=== PATIENT | male | born 1960 | race Caucasian/White ===

== ENCOUNTER → 2017-11-29 08:39 | Outpatient (CLI) | payer MEDICAID, SELFPAY ==
[2017-11-29 09:58] LABS: Microalbumin,Random Urine 8.7 mg/L (NO RANGE EST.); Microalbumin:Creatinine Ratio 5.7 mg/g CRE (<30 mg/g CRE)
[2017-11-29 10:06] LABS: ALB/GLOB Ratio 0.9 RATIO (0.9-2.4); AST(SGOT) 15 U/L (15-37); Alanine Aminotransfer ALT/SGPT 35 U/L (16-61); Albumin, Serum 3.6 g/dL (3.2-5.0); Alkaline Phosphatase 97 U/L (45-117); Anion Gap 7 (5-15); BUN 23 mg/dL (7-18); BUN/Creat Ratio 22.3 RATIO (10-20); Calcium,Total 8.9 mg/dL (8.5-10.1); Chloride 102 mmol/L (98-107); Cholesterol 146 mg/dL (200); Creatinine, Serum 1.03 mg/dL (0.70-1.30); EST Glomerular Filtration Rate 79 mL/min (>60); Est Glom Filt Rate - Afr Amer 96 mL/min (>60); Globulin 3.8 g/dL (2.2-4.2); Glucose 167 mg/dL (74-106); High Density Lipoprotein 32 mg/dL; Potassium 4.3 mmol/L (3.5-5.1); Protein, Total 7.4 g/dL (6.4-8.2); Sodium Level 138 mmol/L (136-145); Triglycerides 204 mg/dL; Very Low Density Lipoprotein 41 mg/dL (5-40)
[2017-11-29 10:07] LABS: Hemoglobin A1c 7.8 % (4.2-6.3)
== END ==
PROVIDERS: Family Provider Family Medicine; PCP Family Medicine; Visit Provider Nurse Practitioner
DX: E11.9 Type 2 diabetes mellitus without complications (principal)
CPT/HCPCS: 36415; 80053; 80061; 82043; 82570; 83036

== ENCOUNTER → 2018-06-11 06:14 | Outpatient (CLI) | payer OTHER, SELFPAY ==
[2018-06-10 12:49] VITALS: BMI 32.2
[2018-06-11 07:39] LABS: AST(SGOT) 14 U/L (15-37); Alanine Aminotransfer ALT/SGPT 37 U/L (16-61); Albumin, Serum 3.7 g/dL (3.2-5.0); Alkaline Phosphatase 89 U/L (45-117); Anion Gap 9 (5-15); BUN 15 mg/dL (7-18); BUN/Creat Ratio 14.6 RATIO (10-20); Calcium,Total 8.6 mg/dL (8.5-10.1); Chloride 106 mmol/L (98-107); Cholesterol 162 mg/dL (200); Creatinine, Serum 1.03 mg/dL (0.70-1.30); EST Glomerular Filtration Rate 79 mL/min (>60); Est Glom Filt Rate - Afr Amer 95 mL/min (>60); Globulin 3.6 g/dL (2.2-4.2); Glucose 161 mg/dL (74-106); High Density Lipoprotein 39 mg/dL; Potassium 3.7 mmol/L (3.5-5.1); Protein, Total 7.3 g/dL (6.4-8.2); Sodium Level 144 mmol/L (136-145); Triglycerides 139 mg/dL; Very Low Density Lipoprotein 28 mg/dL (5-40)
[2018-06-11 08:06] LABS: Hemoglobin A1c 7.3 % (4.2-6.3)
== END ==
PROVIDERS: Family Provider Family Medicine; PCP Family Medicine; Referring Provider Nurse Practitioner; Visit Provider Nurse Practitioner
DX: E11.9 Type 2 diabetes mellitus without complications (principal)
CPT/HCPCS: 36415; 80053; 80061; 82043; 82570; 83036

== ENCOUNTER → 2018-06-12 10:10 | Outpatient (CLI) | payer OTHER, SELFPAY ==
[2018-06-10 12:49] VITALS: BMI 32.2
[2018-06-12 10:55] LABS: Microalbumin,Random Urine 9.6 mg/L (NO RANGE EST.)
== END ==
PROVIDERS: Family Provider Family Medicine; PCP Family Medicine; Referring Provider Nurse Practitioner; Visit Provider Nurse Practitioner
DX: E11.9 Type 2 diabetes mellitus without complications (principal)
CPT/HCPCS: 82043; 82570

== ENCOUNTER → 2019-07-09 13:30 | Outpatient (CLI) | payer OTHER, SELFPAY ==
[2018-06-10 12:49] VITALS: BMI 32.2
[2019-07-09 15:54] LABS: Absolute Lymphocyte Count 2.51 X10^3/uL (0.83-4.51); Absolute Neutrophil Count 4.7 X10^3/uL (2.0-7.7); Basophil# 0.05 X10^3/uL; Basophil% 0.6 % (0-1); Eosinophil# 0.13 X10^3/uL; Eosinophils% 1.6 % (0-5); Hematocrit 49.6 % (40-54); Hemoglobin 15.5 g/dL (13.0-16.5); Lymphocyte # 2.51 X10^3/ul (4.0); Lymphocyte % 30.7 % (19-41); Mean Corp Hgb Conc 31.3 g/dL (32-36); Mean Corpuscular Hgb 27.3 pg (27.0-32.0); Mean Corpuscular Volume 87.3 fL (80-94); Mean Platelet Vol. 12.3 fl (6.2-12.0); Monocyte# 0.76 X10^3/uL; Monocyte% 9.3 % (0-10); NRBC Flagged by Analyzer 0 % (0-5); Neutrophil # 4.71 X10^3/uL (2.7-7.7); Neutrophil % 57.6 % (47-70); Platelet Count 263 K/mm3 (150-450); RBC Distribution Width CV 12.1 % (11.6-14.6); RBC Distribution Width SD 38.7 fl (35.1-43.9); Red Blood Count 5.68 M/mm3 (4.6-6.2); White Blood Count 8.2 K/mm3 (4.4-11.0)
[2019-07-09 16:53] LABS: AST(SGOT) 19 U/L (15-37); Alanine Aminotransfer ALT/SGPT 37 U/L (16-61); Albumin, Serum 3.9 g/dL (3.2-5.0); Alkaline Phosphatase 88 U/L (45-117); Anion Gap 4 (5-15); BUN 17 mg/dL (7-18); BUN/Creat Ratio 16.7 RATIO (10-20); Calcium,Total 8.7 mg/dL (8.5-10.1); Chloride 105 mmol/L (98-107); Cholesterol 166 mg/dL (200); Creatinine, Serum 1.02 mg/dL (0.70-1.30); EST Glomerular Filtration Rate 79 mL/min (>60); Est Glom Filt Rate - Afr Amer 96 mL/min (>60); Globulin 3.8 g/dL (2.2-4.2); Glucose 124 mg/dL (74-106); High Density Lipoprotein 36 mg/dL; Microalbumin,Random Urine 15.5 mg/L (NO RANGE EST.); Microalbumin:Creatinine Ratio 10.8 mg/g CRE (<30 mg/g CRE); Potassium 4.1 mmol/L (3.5-5.1); Protein, Total 7.7 g/dL (6.4-8.2); Sodium Level 139 mmol/L (136-145); Thyroid Stim Hormone (TSH) 0.53 uIU/mL (0.358-3.74); Triglycerides 137 mg/dL; Very Low Density Lipoprotein 27 mg/dL (5-40)
== END ==
PROVIDERS: PCP Family Medicine; Visit Provider Family Medicine
DX: E11.65 Type 2 diabetes mellitus with hyperglycemia (principal); I10 Essential (primary) hypertension; E78.5 Hyperlipidemia, unspecified
CPT/HCPCS: 36415; 80053; 80061; 82043; 82570; 84443; 85025

== ENCOUNTER 2021-05-18 12:13 | Emergency (ER) | payer MEDICAID, SELFPAY ==
[2021-05-18 12:13] VITALS: BP 124/73; PULSE 82; RESP 22; TEMP 37.4; O2SAT 96; BMI 32.7
[2021-05-18 12:16] VITALS: BP 125/70; PULSE 81; RESP 17; TEMP 37.4; O2SAT 95
--- NOTE | 2021-05-18 12:20 | EKG12_ITS ---
Test Reason : SYNCOPE Blood Pressure : / mmHG Vent. Rate : 083 BPM Atrial Rate : 083 BPM P-R Int : 186 ms QRS Dur : 082 ms QT Int : 358 ms P-R-T Axes : 050 025 055 degrees QTc Int : 420 ms Normal sinus rhythm Normal ECG Confirmed by JARED JESUS, MILLER ([id number]), web editor BEHZAD WILLSON ([id number]) on 05/19/2021 1:43:01 PM Referred By: ROYAL Confirmed By:BONY COLEMAN MD
--- NOTE | 2021-05-18 12:20 | RAD_ITS ---
STUDY: X-RAY CHEST REASON FOR EXAM: Male, 61 years old. Cough TECHNIQUE: Single AP portable view of the chest. COMPARISON: None. FINDINGS: EKG electrodes are seen. The lungs are clear and expanded. There is no demonstrated pleural abnormality. Normal size heart. Normal mediastinum and nikos. Normal visualized pulmonary arteries. Normal visualized aortic arch and descending thoracic aorta. Normal visualized thoracic spine. Normal visualized ribs, clavicles, and shoulders. There is no demonstrated abnormality of the visualized soft tissue structures of the upper abdomen. RAD/Chest 1 View (Portable) IMPRESSION: Normal x-ray examination of the chest. Electronically Signed: Tank Muñoz MD at 12:54 EST , Service support ,
[2021-05-18 12:38] LABS: Absolute Lymphocyte Count 1.73 X10^3/uL (0.83-4.51); Basophil# 0.04 X10^3/uL; Basophil% 0.3 % (0-1); Eosinophil# 0.02 X10^3/uL; Eosinophils% 0.1 % (0-5); Hematocrit 48.4 % (40-54); Hemoglobin 15.7 g/dL (13.0-16.5); Lymphocyte # 1.73 X10^3/ul (0.83-4.51); Lymphocyte % 11.3 % (19-41); Mean Corp Hgb Conc 32.4 g/dL (32-36); Mean Corpuscular Volume 86.4 fL (80-94); Mean Platelet Vol. 11.9 fl (6.2-12.0); Monocyte% 9.8 % (0-10); NRBC Flagged by Analyzer 0 % (0-5); Neutrophil # 11.99 X10^3/uL (2.7-7.7); Neutrophil % 78.1 % (47-70); Platelet Count 237 K/mm3 (150-450); RBC Distribution Width CV 12.8 % (11.6-14.6); White Blood Count 15.3 K/mm3 (4.4-11.0)
[2021-05-18 12:55] LABS: ALB/GLOB Ratio 0.9 RATIO (0.9-2.4); AST(SGOT) 16 U/L (15-37); Alanine Aminotransfer ALT/SGPT 33 U/L (16-61); Albumin, Serum 3.7 g/dL (3.2-5.0); Alkaline Phosphatase 100 U/L (45-117); Anion Gap 9 (5-15); BUN 15 mg/dL (7-18); BUN/Creat Ratio 13.6 RATIO (10-20); Calcium,Total 8.4 mg/dL (8.5-10.1); Chloride 99 mmol/L (98-107); EST Glomerular Filtration Rate 72 mL/min (>60); Est Glom Filt Rate - Afr Amer 88 mL/min (>60); Estimated Creatinine Clearance 70.52 ml/min; Glucose 160 mg/dL (74-106); Protein, Total 7.7 g/dL (6.4-8.2); Sodium Level 137 mmol/L (136-145); Troponin-I HS 6 pg/mL (3.0-78.0)
[2021-05-18 13:13] VITALS: BP 133/79; PULSE 90; RESP 18; TEMP 37.1; O2SAT 94
--- NOTE | 2021-05-18 13:23 | EDS_ITS ---
HPI History of Present Illness Chief Complaint: Syncope Narrative Narrative: 61-year-old male presenting with fatigue, cough, body aches for the last couple of days. He thought that he had a cold. Patient states today that he felt nauseous and stood up to go to the bathroom and had an episode of syncope. This is witnessed by the . He did fall to the ground and was unconscious about 10 seconds. Patient was immediately arousable upon awakening. He was alert. Apparently when EMS came to get him off the floor he had an episode of near syncope after they stood him up. Patient denies any chest pain or shortness of breath. He has not had a fever. He states he was vaccinated for COVID-19 with the Room vaccine x2. He states that if he was positive for COVID he would want to monoclonal antibodies. He states that he is diabetic and his blood sugars have been running in the 115 range. No history of syncope. No history of sudden cardiac in the family. [facility] Medical History Back problem Diabetes type 2, controlled HTN (hypertension) Pneumonia Vision problems Home Medications lisinopril-hydrochlorothiazide 1 tab PO DAILY 06/25/15 [History Last Taken Unknown] glimepiride 4 mg tablet 4 mg PO QAM 06/11/17 [History Last Taken Unknown] metformin 500 mg tablet 500 mg PO .4 x qd tab 06/11/17 [History Last Taken Unknown] pravastatin 20 mg tablet 20 mg PO QHS 06/11/17 [History Last Taken Unknown] exenatide 5 mcg SC QDAY ml 09/13/17 [History Last Taken Unknown] metformin 1,000 mg tablet,extended release 24hr 1,000 mg PO BID #180 tab 09/13/17 [Rx Last Taken Unknown] insulin glargine 100 unit/mL (3 mL) subcutaneous pen 20 unit SC QDAY #15 ml 01/08/18 [Rx Last Taken Unknown] dulaglutide 0.75 mg/0.5 mL subcutaneous pen injector 0.75 mg SC QWEEK #2 ml 03/13/18 [Rx Last Taken Unknown] ondansetron 4 mg PO Q8H PRN PRN #14 tab 05/18/21 [Rx Last Taken Unknown] Allergy/AdvReac Type Severity Reaction Status Date / Time No Known Allergies Allergy Verified 05/18/21 12:19 Family History Unknown Diabetes Heart disease Hypertension Social History Smoking Status: Never smoker second hand exposure: No alcohol intake: never substance use type: does not use ROS ROS ED ROS Narrative Syncopal episode Constitutional Constitutional ED: Reports chills; Denies fever(s) Eyes Eyes: Denies blurry vision or diplopia ENT ENT ED: Reports rhinorrhea; Denies sore throat Cardiovascular Cardiovascular: Denies chest pain or palpitations Respiratory/Chest Respiratory/Chest: Reports cough; Denies dyspnea or sputum Gastrointestinal Gastrointestinal: Denies abdominal pain, nausea or vomiting Genitourinary Genitourinary ED: Denies dysuria or hematuria Musculoskeletal Musculoskeletal: Reports myalgias Integumentary Denies Abrasions or rash Neurologic Neurologic: Reports headache(s); Denies paresthesias or weakness EXAM Physical Exam Const Vital Signs: 05/18/21 12:13 05/18/21 12:16 05/18/21 12:25 Temperature 99.4 F H 99.4 F H Temperature Source Oral Oral Pulse Rate 82 81 Respiratory Rate 22 H 17 Respiratory Effort Normal Respiratory Pattern Normal Blood Pressure 124/73 H 125/70 H Blood Pressure Mean 90 88 Pulse Ox 96 95 Oxygen Delivery Method Room Air Room Air 05/18/21 13:13 05/18/21 14:03 Temperature 98.7 F 99.4 F H Temperature Source Temporal Temporal Pulse Rate 90 85 Respiratory Rate 18 16 Respiratory Effort Respiratory Pattern Blood Pressure 133/79 H 153/87 H Blood Pressure Mean 97 109 Pulse Ox 94 95 Oxygen Delivery Method Room Air Room Air Positive well nourished and obese General Appearance ED: NAD; Negative for pallor Nutritional Appearance: obese HEENT Reports TM's clear and moist mucous membranes Negative for trauma Tympanic Membrane ED: Yes TM's clear Eyes EOMs intact bilaterally General Eye ED: Negative for pale conjunctiva or scleral icterus Neck no lymphadenopathy and supple Resp normal respiratory effort and clear to auscultation bilaterally Cardio regular rate and regular rhythm GI normal to inspection, nondistended, normoactive bowel sounds Extremity Negative for normal to inspection General Extremety ED: Negative for edema or tenderness General Extremity: Negative for edema Neuro oriented x3 and CN's II-XII intact bilaterally Sensorium / Orientation: alert Psych mental status grossly normal Skin General Skin Exam: Negative for jaundice or pallor MDM MDM MDM Narrative Medical decision making narrative: Patient presenting with episode of syncope at home. He feels he has been sick for couple of days with something he believes was a cold. Since he had an episode of syncope I obtained an EKG which on my interpretation shows sinus rhythm with a ventricular of 83 bpm without sign of ischemic change or dysrhythmia. Chest x-ray on my interpretation shows no acute cardiopulmonary process the radiologist does agree. CBC shows slight l eukocytosis of 15.3 without a known source. This could be demargination from his syncopal episode. Hemoglobin hematocrit are stable. Renal function electrolytes are normal. Glucose is 160. LFTs are normal. Patient given a liter of IV fluids. He does not have any focal neurologic deficits on examination, and although he hit his head he is not having any red flag signs or symptoms and I do not believe he needs a head CT. Patient did test positive for COVID-19 today. He does request to have a referral for monoclonal antibodies. This is performed. Patient does state that he was sitting for a couple of hours when he felt nauseous and stood up abruptly prior to having a syncopal episode. He currently feels improved. His syncope is likely a combination of getting up too quickly and vasovagal response. Patient is receiving IV fluids and when these are done he will be able to be discharged home. Impression: 1. COVID-19 2. Syncope 3. Nausea 4. Leukocytosis Lab Data Attestation: I reviewed the patient's lab results. Labs: Laboratory Results - last 24 hr 05/18/21 05/18/21 12:20 12:20 WBC 15.3 H RBC 5.60 Hgb 15.7 Hct 48.4 MCV 86.4 MCH 28.0 MCHC 32.4 RDW Std Deviation 40.0 RDW Coeff of Marisol 12.8 Plt Count 237 MPV 11.9 Immature Gran % (Auto) 0.400 Neut % (Auto) 78.1 H Lymph % (Auto) 11.3 L [place] % (Auto) 9.8 Eos % (Auto) 0.1 Baso % (Auto) 0.3 Absolute Neuts (auto) 12.0 H Absolute Lymphs (auto) 1.73 Nucleated RBC % 0 Sodium 137 Potassium 4.0 Chloride 99 Carbon Dioxide 29.0 Anion Gap 9 BUN 15 Creatinine 1.10 Estim Creat Clear Calc 70.52 Est GFR (MDRD) Af Amer 88 Est GFR (MDRD) Non-Af 72 BUN/Creatinine Ratio 13.6 Glucose 160 H Calcium 8.4 L Total Bilirubin 0.60 AST 16 ALT 33 Alkaline Phosphatase 100 Troponin I High Sens 6 Total Protein 7.7 Albumin 3.7 Globulin 4.0 Albumin/Globulin Ratio 0.9 Radiography Diagnostic Testing: Clinical Impression(s) from Imaging Studies Chest X-Ray 05/18/21 12:20 IMPRESSION: Normal x-ray examination of the chest. Electronically Signed: Tank Muñoz MD at 12:54 EST , Service support , Discharge Plan Triage Chief Complaint: Syncope ED Provider: Dieudonne Willson Dx/Rx/DC Orders Instructions: Coronavirus Disease 2019 (COVID-19): Caring for Yourself or Others, ED Fainting, Uncertain Cause, ED Vomiting (Adult) Prescriptions: New ondansetron 4 mg tablet,disintegrating 4 mg PO Q8H PRN PRN (Reason: Nausea) Qty: 14 RF: 0 No Action pravastatin 20 mg tablet 20 mg PO QHS RF: 0 glimepiride 4 mg tablet 4 mg PO QAM RF: 0 exenatide 5 mcg/dose (250 mcg/mL)1.2 mL subcutaneous pen injector 5 mcg/dose (250 mcg/mL) 1.2 mL pen injector 5 mcg SC QDAY RF: 0 metformin ER 1,000 mg tablet,extended release 24hr 1,000 mg tablet extended release 24hr 1,000 mg PO BID Qty: 180 RF: 3 Trulicity 0.75 mg/0.5 mL pen injector 0.75 mg SC QWEEK Qty: 2 RF: 11 lisinopril-hydrochlorothiazide 1 TABLET tablet 1 tab PO DAILY RF: 0 metformin 500 MG tablet 500 mg PO .4 x qd RF: 0 insulin glargine [Basaglar KwikPen U-100 Insulin] 100 unit/mL (3 mL) insulin pen 20 unit SC QDAY Qty: 15 RF: 11 Primary Care Provider: Lukas Boggs Referrals: Lukas Boggs MD [Primary Care Provider] - Disposition Disposition: Home, Self Care
[2021-05-18 14:03] VITALS: BP 153/87; PULSE 85; RESP 16; TEMP 37.4; O2SAT 95
[2021-05-18] MEDS: 0.9% Normal Saline 1,000 ML 999 ML IV (14:03)
[2021-05-18 14:29] VITALS: BP 150/88; PULSE 78; RESP 18; TEMP 36.9; O2SAT 96
== END 2021-05-18 14:30 | disposition home or self-care (01) ==
PROVIDERS: Emergency Provider Student in an Organized Health Care Education/Training Program; PCP Family Medicine; Visit Provider Student in an Organized Health Care Education/Training Program
DX: U07.1 COVID-19 (principal); E11.9 Type 2 diabetes mellitus without complications; Z79.4 Long term (current) use of insulin; R55 Syncope and collapse; I10 Essential (primary) hypertension; Z87.01 Personal history of pneumonia (recurrent); Z79.899 Other long term (current) drug therapy; E66.9 Obesity, unspecified; Z68.32 Body mass index [BMI] 32.0-32.9, adult
CPT/HCPCS: 71045; 80053; 84484; 85025; 87426; 93005; 99285; J7030; A4216

== ENCOUNTER → 2022-07-10 | Outpatient (CLI) | payer MEDICAID, SELFPAY ==
--- NOTE | 2022-07-10 08:35 | RAD_ITS ---
EXAM: XR LEFT SHOULDER COMPLETE, 2 OR MORE VIEWS CLINICAL INDICATION: chronic pain TECHNIQUE: Two or more views of the left shoulder. This report was created using [employer] report generation technology. COMPARISON: None. FINDINGS: BONES/JOINTS: Mild to moderate degenerative changes of the acromioclavicular joint. Type II acromion with curved undersurface. No sclerotic or destructive changes observed. No acute or healing fracture or malalignment. SOFT TISSUES: Soft tissues are normal. No soft tissue swelling or gas. No radiopaque foreign body. RAD/Shoulder min 2 Views IMPRESSION: No acute or healing fracture or malalignment. Electronically Signed: Robert Maher MD at 3:39 EST ,
[2022-07-10 08:52] LABS: Absolute Lymphocyte Count 2.58 X10^3/uL (0.83-4.51); Absolute Neutrophil Count 4.4 X10^3/uL (2.0-7.7); Basophil# 0.05 X10^3/uL; Basophil% 0.6 % (0-1); Eosinophil# 0.29 X10^3/uL; Eosinophils% 3.6 % (0-5); Hematocrit 46.6 % (40-54); Hemoglobin 14.6 g/dL (13.0-16.5); Lymphocyte # 2.58 X10^3/ul (0.83-4.51); Lymphocyte % 32.3 % (19-41); Mean Corp Hgb Conc 31.3 g/dL (32-36); Mean Corpuscular Hgb 27.4 pg (27.0-32.0); Mean Corpuscular Volume 87.6 fL (80-94); Mean Platelet Vol. 11.9 fl (6.2-12.0); Monocyte% 8.8 % (0-10); NRBC Flagged by Analyzer 0 % (0-5); Neutrophil # 4.36 X10^3/uL (2.7-7.7); Neutrophil % 54.4 % (47-70); Platelet Count 296 K/mm3 (150-450); RBC Distribution Width CV 12.5 % (11.6-14.6); RBC Distribution Width SD 39.7 fl (35.1-43.9); Red Blood Count 5.32 M/mm3 (4.6-6.2)
[2022-07-10 09:26] LABS: ALB/GLOB Ratio 0.9 RATIO (0.9-2.4); AST(SGOT) 11 U/L (15-37); Alanine Aminotransfer ALT/SGPT 26 U/L (16-61); Albumin, Serum 3.7 g/dL (3.2-5.0); Alkaline Phosphatase 105 U/L (45-117); Anion Gap 8 (5-15); BUN 22 mg/dL (7-18); BUN/Creat Ratio 19.8 RATIO (10-20); Calcium,Total 8.7 mg/dL (8.5-10.1); Chloride 104 mmol/L (98-107); Cholesterol 182 mg/dL (200); Creatinine, Serum 1.11 mg/dL (0.70-1.30); EST Glomerular Filtration Rate 71 mL/min (>60); Est Glom Filt Rate - Afr Amer 86 mL/min (>60); Globulin 3.9 g/dL (2.2-4.2); Glucose 158 mg/dL (74-106); High Density Lipoprotein 37 mg/dL; Protein, Total 7.6 g/dL (6.4-8.2); Sodium Level 139 mmol/L (136-145); Triglycerides 90 mg/dL; Very Low Density Lipoprotein 18 mg/dL (5-40)
[2022-07-10 09:30] LABS: Microalbumin,Random Urine 20.8 mg/L (NO RANGE EST.); Microalbumin:Creatinine Ratio 9.3 mg/g CRE (<30 mg/g CRE)
[2022-07-10 10:12] LABS: Hemoglobin A1c 7.4 % (3.8-5.6)
== END | disposition home or self-care (01) ==
PROVIDERS: PCP Internal Medicine; Referring Provider Internal Medicine; Visit Provider Internal Medicine
DX: M25.512 Pain in left shoulder (principal); E11.9 Type 2 diabetes mellitus without complications; G89.29 Other chronic pain; I10 Essential (primary) hypertension
CPT/HCPCS: 36415; 73030; 80053; 80061; 82043; 82570; 83036; 85025

== ENCOUNTER → 2023-11-07 | Outpatient (CLI) | payer OTHER, SELFPAY ==
[2023-11-07 10:22] LABS: Absolute Lymphocyte Count 2.21 X10^3/uL (0.83-4.51); Absolute Neutrophil Count 3.7 X10^3/uL (2.0-7.7); Basophil# 0.05 X10^3/uL; Basophil% 0.7 % (0-1); Eosinophil# 0.22 X10^3/uL; Eosinophils% 3.2 % (0-5); Hematocrit 46.7 % (40-54); Lymphocyte # 2.21 X10^3/ul (0.83-4.51); Lymphocyte % 32.1 % (19-41); Mean Corp Hgb Conc 32.1 g/dL (32-36); Mean Corpuscular Hgb 27.3 pg (27.0-32.0); Mean Corpuscular Volume 85.1 fL (80-94); Mean Platelet Vol. 12.2 fl (6.2-12.0); Monocyte# 0.68 X10^3/uL; Monocyte% 9.9 % (0-10); NRBC Flagged by Analyzer 0 % (0-5); Neutrophil # 3.71 X10^3/uL (2.7-7.7); Platelet Count 268 K/mm3 (150-450); RBC Distribution Width CV 12.4 % (11.6-14.6); RBC Distribution Width SD 38.5 fl (35.1-43.9); Red Blood Count 5.49 M/mm3 (4.6-6.2); White Blood Count 6.9 K/mm3 (4.4-11.0)
[2023-11-07 10:55] LABS: AST(SGOT) 17 U/L (15-37); Alanine Aminotransfer ALT/SGPT 32 U/L (16-61); Albumin, Serum 3.5 g/dL (3.2-5.0); Alkaline Phosphatase 84 U/L (45-117); Anion Gap 7 (5-15); BUN 16 mg/dL (7-18); BUN/Creat Ratio 14.5 RATIO (10-20); Calcium,Total 8.7 mg/dL (8.5-10.1); Chloride 105 mmol/L (98-107); Cholesterol 139 mg/dL (200); EST Glomerular Filtration Rate 72 mL/min (>60); Est Glom Filt Rate - Afr Amer 87 mL/min (>60); Globulin 3.6 g/dL (2.2-4.2); Glucose 86 mg/dL (74-106); High Density Lipoprotein 39 mg/dL; Potassium 3.6 mmol/L (3.5-5.1); Protein, Total 7.1 g/dL (6.4-8.2); Sodium Level 139 mmol/L (136-145); Thyroid Stim Hormone (TSH) 1.47 uIU/mL (0.358-3.74); Triglycerides 103 mg/dL; Very Low Density Lipoprotein 21 mg/dL (5-40)
[2023-11-07 10:58] LABS: Microalbumin,Random Urine 15.3 mg/L (NO RANGE EST.)
[2023-11-08 13:50] LABS: Vitamin D,25 Hydroxy 19.9 ng/mL
== END | disposition home or self-care (01) ==
LOC: LAB 09:30
PROVIDERS: PCP Internal Medicine; Referring Provider Nurse Practitioner Family; Visit Provider Nurse Practitioner Family
DX: E11.9 Type 2 diabetes mellitus without complications (principal); I10 Essential (primary) hypertension; E66.09 Other obesity due to excess calories; Z68.34 Body mass index [BMI] 34.0-34.9, adult
CPT/HCPCS: 36415; 80053; 80061; 82043; 82306; 82570; 84443; 85025

== ENCOUNTER → 2025-04-13 | Outpatient (CLI) | payer MEDICARE, SELFPAY ==
--- OUTSIDE RECORDS SUMMARY | 2025-04-13 08:51 | XMS RPT_ITS | CCD ---
Author Organization [facility] Care Team Providers Care Graduate Student Instructor Name Role Phone Dr. Lukas Boggs Primary Care Provider Dr. Lukas Boggs Referring Provider Dr. Flora Rubalcava Attending Provider Gini JESUS, Dr. Hines Primary Care Provider Dr. Flora Rubalcava MD Referring Provider Rodo [employer]ris Attending Provider Vulcan, Flora Primary Care Unavailable Iris Koehler Attending Unavailable Gini, Flora Referring Unavailable Kassidy Aviles Attending Unavailable Vulcan, Flora Primary Care Unavailable Vulcan, Flora Referring Unavailable Gini, Flora Primary Care Unavailable Iris Koehler Attending Unavailable Vulcan, Flora Referring Unavailable Iris Koehler Attending Unavailable Vulcan, Flora Referring Unavailable Vulcan, Flora Primary Care Unavailable Gini, Flora Attending Unavailable Vulcan, Flora Referring Unavailable Gini, Flora Primary Care Unavailable Iris Koehler Attending Unavailable Vulcan, Flora Primary Care Unavailable Vulcan, Flora Referring Unavailable Vulcan, Flora Primary Care Unavailable Iris Koehler Attending Unavailable Iris Koehler Referring Unavailable Medications Current Medications Medication Drug Class(es) Dates Sig (Normalized) Sig (Original) Blood-Glucose Sensor (Dexcom G6 Sensor) device (8 sources) Start: 07-30-2024 Blood-Glucose Sensor (Dexcom G6 Sensor) device Active 0 .Route 3 July 30, 2024 8:18am As directed Start: 03-31-2024 End: 07-30-2024 Blood-Glucose Sensor (Dexcom G6 Sensor) device Discontinued 0 .Route 3 March 31, 2024 1:44pm July 30, 2024 8:18am As directed Start: 11-01-2023 End: 03-31-2024 Blood-Glucose Sensor (Dexcom G6 Sensor) device Discontinued 0 .Route 3 November 01, 2023 9:14am March 31, 2024 1:44pm As directed Start: 09-03-2023 End: 11-01-2023 Blood-Glucose Sensor (Dexcom G6 Sensor) device Discontinued 0 .Route 3 September 03, 2023 8:10am November 01, 2023 9:15am As directed Start: 04-20-2023 End: 09-03-2023 Blood-Glucose Sensor (Dexcom G6 Sensor) device Discontinued 0 .Route 3 April 20, 2023 11:59am September 03, 2023 8:10am As directed Start: 08-08-2022 End: 04-20-2023 Blood-Glucose Sensor (Dexcom G6 Sensor) device Discontinued 0 .Route 3 August 08, 2022 9:03am April 20, 2023 12:00pm As directed Start: 06-22-2022 End: 08-08-2022 Blood-Glucose Sensor (Dexcom G6 Sensor) device Discontinued 0 .Route June 22, 2022 1:00am August 08, 2022 9:04am As directed Start: 06-22-2022 Blood-Glucose Sensor (Dexcom G6 Sensor) device Active 0 .ROUTE June 22, 2022 1:00am As directed Blood-Glucose Transmitter (Dexcom G6 Transmitter) device (6 sources) Start: 03-31-2024 Blood-Glucose Transmitter (Dexcom G6 Transmitter) device Active 0 .Route 1 March 31, 2024 1:44pm As directed Start: 11-01-2023 End: 03-31-2024 Blood-Glucose Transmitter (D excom G6 Transmitter) device Discontinued 0 .Route 1 November 01, 2023 9:14am March 31, 2024 1:44pm As directed Start: 04-20-2023 End: 11-01-2023 Blood-Glucose Transmitter (D excom G6 Transmitter) device Discontinued 0 .Route 1 April 20, 2023 11:59am November 01, 2023 9:15am As directed Start: 11-14-2022 End: 04-20-2023 Blood-Glucose Transmitter (D excom G6 Transmitter) device Discontinued 0 .Route 1 November 14, 2022 10:49am April 20, 2023 12:00pm As directed Start: 08-08-2022 End: 11-14-2022 Blood-Glucose Transmitter (D excom G6 Transmitter) device Discontinued 0 .Route 1 August 08, 2022 9:04am November 14, 2022 10:50am As directed Start: 08-07-2022 End: 08-08-2022 Blood-Glucose Transmitter (D excom G6 Transmitter) device Discontinued 0 .Route August 07, 2022 12:00am August 08, 2022 9:04am As directed cholecalciferol 0.05 mg oral capsule (1 source) Vitamin D Start: 05-08-2024 take 1 capsule by mouth once daily Cholecalciferol (Vitamin D3) 50 mcg (2,000 unit) capsule Active 50 ug PO daily May 08, 2024 1:00am hydroCHLOROthiazide 12.5 mg / lisinopril 10 mg oral tablet (7 sources) Thiazide Diuretic, Angiotensin Converting Enzyme Inhibitor Start: 06-25-2015 End: 04-11-2024 Lisinopril-Hydrochl orothiazide 10-12.5 mg tablet Active 1 {tbl} PO DAILY April 11, 2024 3:20pm Start: 06-25-2015 take 1 tablet by rock once daily Lisinopril-Hydrochlorothiazide Active 1 TABLET PO DAILY June 25, 2015 1:00am insulin lispro 100 unt/ml injectable solution (5 sources) Insulin Analog Start: 04-25-2023 End: 09-22-2024 Insulin Lispro (Humalog U-100 Insulin) 100 unit/mL solution Active 100 U continuous subcutaneous infusion .continuous September 22, 2024 3:57pm to be used via insulin pump Insulin Pump Cart,Auto,Bt-Cntr (Omnipod 5 G6 Intro Kit (Gen 5)) cartridge (2 sources) Start: 03-08-2023 Insulin Pump Cart,Auto,Bt-Cntr (Omnipod 5 G6 Intro Kit (Gen 5)) cartridge Active 0 .Route March 08, 2023 4:22pm As directed Start: 02-15-2023 End: 03-08-2023 Insulin Pump Cart,Auto,Bt-Cn tr (Omnipod 5 G6 Intro Kit (Gen 5)) cartridge Discontinued 0 .Route 1 February 15, 2023 12:00am March 08, 2023 4:23pm As directed Insulin Pump Cart,Automated,Bt cartridge (1 source) Start: 10-02-2024 Insulin Pump Cart,Automated,Bt cartridge Active 0 .Route 45 October 02, 2024 11:15am 1 pod q 72 hrs metFORMIN hydrochloride 1000 mg oral tablet (11 sources) Biguanide Start: 04-17-2023 End: 04-11-2024 take 1 tablet by mouth twice daily Metformin 1,000 mg tablet Active 1000 mg PO TWICE A DAY 180 April 11, 2024 10:23am Start: 09-13-2017 End: 04-17-2023 take 1 tablet by mouth twice daily at dinner Metformin 1,000 mg tablet extended release 24 hr Discontinued 1000 mg PO TWICE A DAY 180 April 11, 2023 3:00pm April 17, 2023 3:52pm administer with evening meal Start: 06-11-2017 End: 06-22-2022 take 0.4 tablet by mouth once daily Metformin 500 MG tablet Discontinued 500 mg PO .4 x qd June 11, 2017 10:04am June 22, 2022 3:57pm Start: 06-25-2015 End: 06-11-2017 take 1 tablet by mouth three times daily at mealtime Metformin 500 MG tablet Discontinued 500 mg PO 3 TIMES DAILY WITH MEALS June 25, 2015 1:00am June 11, 2017 10:05am pravastatin sodium 20 mg oral tablet (6 sources) HMG-CoA Reductase Inhibitor Start: 06-11-2017 End: 06-30-2024 take 1 tablet by mouth at bedtime Pravastatin 20 mg tablet Active 20 mg PO AT BEDTIME 90 June 30, 2024 2:00pm zolpidem tartrate 10 mg oral tablet (3 sources) gamma-Aminobutyri c Acid-ergic Agonist Start: 12-20-2022 End: 12-25-2023 take 1 tablet by mouth at bedtime as needed Zolpidem 10 mg tablet Active 10 mg PO AT BEDTIME as needed for insomnia December 25, 2023 9:08am Completed/Discontinued Medications Medication Drug Class(es) Dates Sig (Normalized) Sig (Original) aspirin 81 mg delayed release oral tablet (2 sources) Platelet Aggregation Inhibitor, Nonsteroidal Anti-inflammatory Drug Start: 06-22-2022 End: 11-01-2023 Aspirin (Adult Low Dose Aspirin) 81 mg tablet,delayed release (DR/EC) Discontinued 81 mg PO DAILY June 22, 2022 1:00am November 01, 2023 8:46am atorvastatin 10 mg oral tablet (2 sources) HMG-CoA Reductase Inhibitor Start: 06-25-2015 End: 06-11-2017 take 1 tablet by mouth once daily Atorvastatin 10 MG tablet Discontinued 10 mg PO DAILY June 25, 2015 1:00am June 11, 2017 10:04am 0.5 ml dulaglutide 1.5 mg/ml auto-injector (2 sources) GLP-1 Receptor Agonist Start: 03-13-2018 End: 06-22-2022 Dulaglutide (Trulicity) 0.75 mg/0.5 mL pen injector Discontinued 0.75 mg SC EVERY WEEK 2 March 13, 2018 1:00am June 22, 2022 3:59pm 60 actuat exenatide 0.005 mg/actuat pen injector (4 sources) GLP-1 Receptor Agonist Start: 09-13-2017 End: 06-22-2022 Exenatide (Byetta) 5 mcg/dose (250 mcg/mL) 1.2 mL pen injector Discontinued 5 ug SC daily September 13, 2017 12:00am June 22, 2022 3:59pm Start: 09-13-2017 End: 06-22-2022 inject 5 ug by subcutaneous injection once daily exenatide 5 mcg/dose (250 mcg/mL)1.2 mL subcutaneous pen injector Discontinued 5 MCG SC daily September 13, 2017 12:00am June 22, 2022 3:59pm Start: 06-25-2015 End: 06-11-2017 inject 5 mg by subcutaneous injection at bedtime Baljinder ([facility]) Discontinued 5 mg SQ AC, HS, & 3am June 25, 2015 1:00am June 11, 2017 10:04am Start: 06-25-2015 End: 06-11-2017 inject 5 mg by subcutaneous injection at bedtime Baljinder ([facility]) Discontinued 5 MG SQ AC, HS, & 3am June 25, 2015 1:00am June 11, 2017 10:04am glimepiride 4 mg oral tablet (6 sources) Sulfonylurea Start: 06-11-2017 End: 10-13-2024 take 1 tablet by mouth once daily in the morning Glimepiride 4 mg tablet Discontinued 4 mg PO EVERY MORNING August 29, 2024 7:19am October 13, 2024 10:04am insulin aspart, human 100 unt/ml injectable solution (3 sources) Insulin Analog Start: 02-15-2023 End: 04-25-2023 Insulin Aspart U-100 (Novolog U-100 Insulin Aspart) 100 unit/mL solution Discontinued 100 U continuous subcutaneous infusion .continuous 90 April 23, 2023 1:44pm April 25, 2023 9:23am via insulin pump 3 ml insulin glargine 100 unt/ml pen injector (6 sources) Insulin Analog Start: 01-08-2018 End: 06-22-2022 Insulin Glargine (Basaglar Kwikpen U-100 Insulin) 100 unit/mL (3 mL) insulin pen Discontinued 20 U SC daily January 08, 2018 11:42am June 22, 2022 3:59pm Start: 09-03-2017 End: 01-08-2018 Insulin Glargine (Basaglar K wikpen U-100 Insulin) 100 unit/mL (3 mL) insulin pen Discontinued 10 U SC daily September 04, 2017 12:00am January 08, 2018 11:44am insulin isophane, human 100 unt/ml injectable suspension (2 sources) Start: 06-22-2022 End: 11-01-2023 Insulin Nph Isoph U-100 Niyah n (Novolin N Nph U-100 Insulin) 100 unit/mL suspension Discontinued 20 U SC EVERY EVENING June 22, 2022 1:00am November 01, 2023 8:46am insulin isophane, human 70 unt/ml / insulin, regular, human 30 unt/ml injectable suspension (2 sources) Insulin Start: 06-22-2022 End: 02-15-2023 Insulin Nph And Regular Niyah n (Novolin 70/30 U-100 Insulin) 100 unit/mL (70-30) suspension Discontinued 20 U SC TWICE A DAY June 22, 2022 1:00am February 15, 2023 10:03am Insulin Pump Cart,Automated,Bt (Omnipod 5 G6 Pods (Gen 5)) cartridge (4 sources) Start: 11-01-2023 End: 10-02-2024 Insulin Pump Cart,Automated,Bt (Omnipod 5 G6 Pods (Gen 5)) cartridge Discontinued 0 .Route 45 November 01, 2023 9:14am October 02, 2024 11:15am 1 pod q 48 hrs Start: 04-20-2023 End: 11-01-2023 Insulin Pump Cart,Automated, Bt (Omnipod 5 G6 Pods (Gen 5)) cartridge Discontinued 0 .Route 45 April 20, 2023 12:02pm November 01, 2023 9:15am 1 pod q 48 hrs Start: 03-08-2023 End: 04-20-2023 Insulin Pump Cart,Automated, Bt (Omnipod 5 G6 Pods (Gen 5)) cartridge Discontinued 0 .Route March 08, 2023 4:22pm April 20, 2023 12:02pm 1 pod q 48 hrs Start: 02-15-2023 End: 03-08-2023 Insulin Pump Cart,Automated, Bt (Omnipod 5 G6 Pods (Gen 5)) cartridge Discontinued 0 .Route February 15, 2023 12:00am March 08, 2023 4:23pm 1 pod q 48 hrs insulin, regular, human 100 unt/ml injectable solution (2 sources) Insulin Start: 06-22-2022 End: 04-23-2023 Insulin Regular Human (Novolin R Regular U-100 Insuln) 100 unit/mL solution Discontinued 1 sliding scale dose SC Use as Directed June 22, 2022 1:00am April 23, 2023 8:44am Start: 06-22-2022 Insulin Regula r Human (Novolin R Regular U-100 Insuln) 100 unit/mL solution Active 1 sliding scale dose SC Use as Directed June 22, 2022 1:00am ondansetron 4 mg disintegrating oral tablet (2 sources) Serotonin-3 Receptor Antagonist Start: 05-18-2021 End: 06-22-2022 take 1 tablet by mouth every eight hours as needed for nausea Ondansetron 4 mg tablet,disintegrating Discontinued 4 mg PO EVERY 8 HOURS NEEDED as needed for Nausea May 18, 2021 1:00am June 22, 2022 3:57pm Problems Active Problems Problem Classification Problem Date Documented Da te Episodic/Chronic Administrative/social admission (1 source) Persons encountering health services in other specified circumstances; Translations: [Other reasons for seeking consultation] 06-22-2022 Episodic Diabetes mellitus without complication (5 sources) Type 2 diabetes mellitus without complication; Translations: [Type 2 diabetes mellitus without complications] Onset: 10-13-2024 12-07-2017 Chronic Diabetes mellitus without complication (1 source) Insulin pump present; Translations: [Presence of insulin pump (external) (internal)] 06-27-2023 Episodic Disorders of lipid metabolism (1 source) Mixed hyperlipidemia; Translations: [Mixed hyperlipidemia] 04-14-2024 Chronic Essential hypertension (4 sources) Essential hypertension; Translations: [Essential (primary) hypertension] Onset: 10-13-2024 06-22-2022 Chronic Other non-traumatic joint disorders (2 sources) Chronic pain of left upper limb; Translations: [Pain in left shoulder] 06-22-2022 Episodic Other non-traumatic joint disorders (1 source) Pain in left shoulder; Translations: [Pain in joint, shoulder region] 06-22-2022 Episodic Other nutritional; endocrine; and metabolic disorders (1 source) Obesity; Translations: [Obesity, unspecified] 02-15-2023 Chronic Other nutritional; endocrine; and metabolic disorders (1 source) Other obesity due to excess calories; Translations: [Other obesity due to excess calories] Onset: 10-13-2024 Chronic Other nutritional; endocrine; and metabolic disorders (1 source) Body mass index (BMI) 34.0-34.9, adult; Translations: [Body mass index [BMI] 34.0-34.9, adult] Onset: 10-13-2024 Chronic Residual codes; unclassified (1 source) Immunization not carried out because of patient refusal; Translations: [Vaccination not carried out because of patient refusal] 06-22-2022 Episodic Residual codes; unclassified (1 source) Difficulty sleeping ; Translations: [Sleep disorder, unspecified] 12-25-2023 Episodic Retinal detachments; defects; vascular occlusion; and retinopathy (2 sources) Degenerative disorder of macula ; Translations: [Unspecified macular degeneration] 06-22-2022 Chronic Past or Other Problems Problem Classification Problem Date Documented Da te Episodic/Chronic Other screening for suspected conditions (not mental disorders or infectious disease) (2 sources) Patient encounter status; Translations: [Encounter for screening for malignant neoplasm of prostate] Onset: 12-25-2023 12-25-2023 Episodic Results Test Name Value Interpretation Reference Range Facility Endocrinology Visit Reporton 10-13-2024 Endocrinology Visit Report [facility] [address] [place] [address] OFFICE VISIT Date of Service: 10/13/24 MR#: [id number] Acct: [id number] Name: BREE GALVEZ Rep #: [id number] : 1960 Provider: FILOMENA lafleur Age/Sex: 64/M Location: [facility] [place] Status: Signed Intake Vital Signs 04/14/24 09:41 10/13/24 09:38 Height 5 ft 9 in 5 ft 9 in Weight: 232 lb 2 oz 231 lb BMI 34.2 34.1 BP 155/90 H 137/88 H Blood Pressure Location Lt brachial Rt brachial Position Sitting Sitting Pulse 72 72 Pulse Source Monitor Monitor Pulse Oximetry (%) 97 93 Oxygen Delivery Method room air room air Intake Visit Reasons: 6 M FU Chief Complaint: f/u diabetes Is patient in pain?: No Allergies No Known Allergies Allergy (Verified 10/13/24 09:40) Medications ???Medication ???Instructions ???Recorded ???Confirmed ???Type insulin pump cartridge,automate d #1 ea 03/08/23 10/13/24 Rx dose,BT with controller subcutaneous (Omnipod 5 G6 Intro Kit (Gen 5) subcutaneous cartridge with controller) zolpidem 10 mg tablet 10 mg PO QHS PRN insomnia #30 tabs 12/25/23 10/13/24 Rx blood-glucose transmitter (Dexcom #1 ea 03/31/24 10/13/24 Rx G6 Transmitter device) lisinopril 10 1 tab PO DAILY #90 tabs 04/11/24 0 10/13/24 Rx mg-hydrochlorothia zide 12.5 mg tablet metformin 1,000 mg tablet 1,000 mg PO BID #180 tabs 04/11/24 10/13/24 Rx cholecalciferol (vitamin D3) 50 50 mcg PO QDAY #90 caps 05/08/24 0 10/13/24 Rx mcg (2,000 unit) capsule pravastatin 20 mg tablet 20 mg PO QHS #90 tabs 06/30/2401/29 Rx blood-glucose sensor (Dexcom G6 #3 ea 07/30/24 10/13/24 Rx Sensor device) Humalog U-100 Insulin 100 unit/mL 100 unit continuous subcutaneous 09/22/24 10/13/24 Rx subcutaneous solution (insulin infusion .continuous #90 mL lispro) insulin pump cart,automated,BT #45 ea 10/02/24 10/13/24 Rx PFSH Medical History Injection of surface of left eye Pneumonia HTN (hypertension) Diabetes type 2, controlled Back problem Surgical History No pertinent past surgical history Family History Mother Alcoholism Heart disease Myocardial infarction Hypertension Diabetes Father Alcoholism Social History household members: spouse current occupational status: employed current occupation: self employed, 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 A1C today is 6.9%, improved from 04/14/24 at 7.1%. Weight is stable. Currently using Omnipod 5 with Dexcom G6. He is pleased with system. Additionally, he is taking metformin 1 gm BID with food and glimepiride 4 mg once daily. [place] report downloaded and reviewed- he is under reporting carbohydrates, he is occasionally missing boluses. He denies any significant episode of hypoglycemia that has required assistance from others. BP today is controlled. Currently taking lisinopril-HCTZ 10-12.5 mg once daily. He is taking a daily statin. He was noted to have vitamin D deficiency on most recent labs. He is taking vitamin D3 2,000 iu once daily. He is due for labs. Denies any acute concerns. ROS Const Constitutional: No fatigue or weight change ENT ENT: No dizziness/vertigo Cardio Cardiology: No chest pain at rest, chest pain with exertion, shortness of breath or palpitations Skin Skin: No wounds Endo Endocrine: No fatigue or weight change Exam Const General: cooperative, healthy appearing, comfortable and no acute distress Nutritional Appearance: obese Orientation: alert, awake and oriented x3 HENMT Head: normal to inspection Ears: hearing grossly normal bilaterally Nose: external nose normal Face and sinus: normal facial exam Eyes General: appearance normal, both eyes and all related structures Alignment and Position: alignment normal Sclera: sclerae normal Neck Neck: normal visual inspection Chest Chest palpation inspection: normal inspection of the chest Resp Effort Inspection: normal respiratory effort, able to speak in complete sentences, symmetric chest movement, normal respiratory pattern, no audible wheezes and no cough Auscultat (more content not included)... Normal [facility] Office Visit Reporton 2023 Office Visit Report [facility] [address] [place] [address] OFFICE VISIT Date of Service: 04/28/24 MR#: [id number] Acct: [id number] Patient: BREE GALVEZ Rep #: [id number] : 1960 Provider: FILOMENA lafleur Age/Sex: 64/M Location: [facility] [place] Status: Signed Intake Vital Signs 04/14/24 09:41 04/28/24 10:03 Height 5 ft 9 in Weight: 232 lb 2 oz BMI 34.2 BP 155/90 H 122/84 H Blood Pressure Location Lt brachial Rt brachial Position Sitting Sitting Pulse 72 Pulse Source Monitor Pulse Oximetry (%) 97 Oxygen Delivery Method room air Intake Visit Reasons: BP Check Chief Complaint: f/u diabetes Allergies No Known Allergies Allergy (Verified 12/25/23 08:50) Assessment and Plan Assessment and Plan (1) Essential hypertension: Status: Chronic Plan: BP recheck with nursing normal. No changes made to medication regimen/plan. 06/09/24 0705 Date Iris Larson Signature: Date (if applicable) CC: Normal [facility] Endocrinology Visit Reporton 04-14-2024 Endocrinology Visit Report [facility] [address] [place] [address] OFFICE VISIT Date of Service: 04/14/24 MR#: [id number] Acct: [id number] Name: BREE GALVEZ Rep #: [id number] : 1960 Provider: FILOMENA lafleur Age/Sex: 64/M Location: [facility] [place] Status: Signed Intake Vital Signs 11/01/23 08:47 12/25/23 08:52 04/14/24 09:41 Height 5 ft 9 in 5 ft 9 in 5 ft 9 in Weight: 230 lb 232 lb 6 oz 232 lb 2 oz BMI 34.0 34.3 34.2 BP 135/81 H 120/74 155/90 H Blood Pressure Location Rt brachial Lt brachial Lt brachial Position Sitting Sitting Sitting Respiration 16 16 Pulse 75 76 72 Pulse Source Monitor Monitor Monitor Temp 96.5 F L 97.1 F L Temp Source Temporal Temporal Pulse Oximetry (%) 94 97 97 Oxygen Delivery Method room air room air room air Intake Visit Reasons: 5 M FU Chief Complaint: f/u diabetes Is patient in pain?: No Allergies No Known Allergies Allergy (Verified 12/25/23 08:50) Medications ???Medication ???Instructions ???Recorded ???Confirmed ???Type insulin pump cartridge,automate d #1 ea 03/08/23 04/14/24 Rx dose,BT with controller subcutaneous (Omnipod 5 G6 Intro Kit (Gen 5) subcutaneous cartridge with controller) glimepiride 4 mg tablet 4 mg PO QAM #90 tabs 11/01/23 04/14/24 Rx insulin pump cart,automated,BT #45 ea 11/01/23 04/14/24 Rx (Omnipod 5 G6 Pods (Gen 5) subcutaneous cartridge) pravastatin 20 mg tablet 20 mg PO QHS #90 tabs 11/01/23 04/14/24 Rx zolpidem 10 mg tablet 10 mg PO QHS PRN insomnia #30 tabs 12/25/23 04/14/24 Rx Humalog U-100 Insulin 100 unit/mL 100 unit continuous subcutaneous 03/31/24 04/14/24 Rx subcutaneous solution (insulin infusion .continuous #90 mL lispro) blood-glucose sensor (Dexcom G6 #3 ea 03/31/24 04/14/24 Rx Sensor device) blood-glucose transmitter (Dexcom #1 ea 03/31/24 04/14/24 Rx G6 Transmitter device) lisinopril 10 1 tab PO DAILY #90 tabs 04/11/24 04/14/24 Rx mg-hydrochlorothia zide 12.5 mg tablet metformin 1,000 mg tablet 1,000 mg PO BID #180 tabs 04/11/24 04/14/24 Rx PFSH Medical History Injection of surface of left eye Pneumonia HTN (hypertension) Diabetes type 2, controlled Back problem Surgical History No pertinent past surgical history Family History Mother Alcoholism Heart disease Myocardial infarction Hypertension Diabetes Father Alcoholism Social History household members: spouse current occupational status: employed current occupation: self employed, 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 A1C today is 7.1%, increased from 11/01/23 at 6.7%., He has gained 2 lbs. He currently taking metformin 1 gm BID with food and is using Omnipod 5 with Dexcom CGM. CGM tracings reviewed- he is under reporting carbs or missing boluses. Denies any significant episode of hypoglycemia that has required assistance from others. Initial BP today is elevated at 155/90, repeat manual is 152/92. Currently taking lisinopril-HCTZ 10-12.5 mg once daily. He takes a daily statin. He reports symptoms of viral syndrome that started yesterday. He has not taken any medications to address. Denies any acute concerns. ROS Const Constitutional: No fatigue or weight change ENT ENT: Positive for nasal congestion and sore throat; No dizziness/vertigo Cardio Cardiology: No chest pain at rest, chest pain with exertion, shortness of breath or palpitations Skin Skin: No wounds Endo Endocrine: No fatigue or weight change Exam Const General: cooperative, healthy appearing, comfortable and no acute distress Nutritional Appearance: obese Orientation: alert, awake and oriented x3 HENMT Head: normal to inspection Ears: hearing grossly normal bilaterally Nose: external nose normal Face and sinus: normal facial exam Eyes General: appearance normal, both eyes and all related structures Alignment and Position: alignment normal Sclera: sclerae normal Neck Neck: normal visual inspection Carotids: normal carotid upstroke Chest Chest palpation inspection: normal inspection of the chest Resp Effort Inspect (more content not included)... Normal [facility] Internal Medicine Office Vis marlen 12-25-2023 Internal Medicine Office [facility] [address] [place] [address] OFFICE VISIT Date of Service: 12/25/23 MR#: [id number] Acct: [id number] Name: BREE GALVEZ Rep #: [id number] : 1960 Provider: FILOMENA sahni Age/Sex: 63/M Location: [facility] [place] Status: Signed Intake Vital Signs 06/25/23 08:25 11/01/23 08:47 12/25/23 08:52 Height 5 ft 9 in 5 ft 9 in 5 ft 9 in Weight: 232 lb 6 oz BMI 34.3 BP 120/74 Blood Pressure Location Lt brachial Position Sitting Respiration 16 Pulse 76 Pulse Source Monitor Temp 97.1 F L Temp Source Temporal Pulse Oximetry (%) 97 Oxygen Delivery Method room air Intake Visit Reasons: 6 M FU Chief Complaint: 6m f/u Product Safety Consultant Required: No Accompanied by: Self Is patient in pain?: No Allergies No Known Allergies Allergy (Verified 12/25/23 08:50) Medications ???Medication ???Instructions ???Recorded ???Confirmed ???Type insulin pump cartridge,automate d #1 ea 03/08/23 12/25/23 Rx dose,BT with controller subcutaneous (Omnipod 5 G6 Intro Kit (Gen 5) subcutaneous cartridge with controller) Humalog U-100 Insulin 100 unit/mL 100 unit continuous subcutaneous 11/01/23 12/25/23 Rx subcutaneous solution (insulin infusion .continuous #90 mL lispro) blood-glucose sensor (Dexcom G6 #3 ea 11/01/23 12/25/23 Rx Sensor device) blood-glucose transmitter (Dexcom #1 ea 11/01/23 12/25/23 Rx G6 Transmitter device) glimepiride 4 mg tablet 4 mg PO QAM #90 tabs 11/01/23 12/25/23 Rx insulin pump cart,automated,BT #45 ea 11/01/23 12/25/23 Rx (Omnipod 5 G6 Pods (Gen 5) subcutaneous cartridge) lisinopril 10 1 tab PO DAILY #90 tabs 11/01/23 12/25/23 Rx mg-hydrochlorothia zide 12.5 mg tablet metformin 1,000 mg tablet 1,000 mg PO BID #180 tabs 11/01/23 12/25/23 Rx pravastatin 20 mg tablet 20 mg PO QHS #90 tabs 11/01/23 12/25/23 Rx zolpidem 10 mg tablet 10 mg PO QHS PRN insomnia #30 tabs 12/25/23 12/25/23 Rx PFSH Medical History Injection of surface of left eye Pneumonia HTN (hypertension) Diabetes type 2, controlled Back problem Surgical History No pertinent past surgical history Family History Mother Alcoholism Heart disease Myocardial infarction Hypertension Diabetes Father Alcoholism Social History household members: spouse current occupational status: employed current occupation: self employed, 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 He is a patient of Dr. Cosme. He is UTD on preventative screenings with the exception of prostate cancer screening. Last colonoscopy was 3 years ago. He was last evaluated in office on 06/25/2023. He does not smoke. He reports he is eating healthy and has been active. He declines immunizations today. He has a past medical history of type 2 diabetes and follows with endocrinology. He last saw endocrinology on 11/01/2023. He is up-to-date on his diabetic eye exam.He utilizes an insulin pump. His blood glucose averages 130. He does not follow-up podiatry but states he performs self nightly foot exams. He additionally has a past medical history of hypertension. He does not check his blood pressure at home. He is taking his medication as prescribed without problems. He does try to monitor salt intake. He remains on cholesterol medication is tolerating it without adverse effects. He has acute concerns regarding sleep. He is requesting a refill of ambien that was prescribed 3 years. He does snore at times. He reports he has difficulty falling and staying asleep. He states he does wake feeling well rested however. He reports that he uses Ambien very infrequently and only when traveling and changing time zones on a very difficult night of sleep. He estimates he utilizes it 10 to 15 days out of the year. He denies any adverse effects related to Ambien use such as sleepwalking or hallucinations. He has no additional concerns. ROS Const Constitutional: No body ache, chills, excessive sweating, fatigue, fever(s), frequent falls, headache(s), snoring, weakness or change in appetite Eyes Eyes: No blurry vision, change in vision, eye pain or Light sensitivity ENT ENT: No abnormal hearing, ear or mast (more content not included)... Normal [facility] Vitamin D,25 Hydroxyon 11-07 Vitamin D 25-OH 19.9 ng/mL Normal [facility] Comment on above: Result Comment: Jennifer min D 25(OH) Status Range Deficiency <20 ng/mL (50nmol/L) Insufficiency 20 - 30 ng/mL (50 - 75 nmol/L) Sufficiency 30 - 100 ng/mL (75 - 250 nmol/L) Toxicity >100 ng/mL (>250 nmol/L) Performed By: #### L 501.9520, L506.1000, L502.0250, L500.4050, L100.0100, L500.4100 #### [facility] [address] [place], [address] CBC W/Diff, Automatedon 07-0 3-2024 Absolute Lymph 2.21 X10 3/uL Normal 0.83-4.51 [facility] Comment on above: Performed By: #### L 501.9520, L506.1000, L502.0250, L500.4050, L100.0100, L500.4100 #### [facility] [address] [place], [address] Absolute Neut 3.7 X10 3/uL Normal 2.0-7.7 [facility] Comment on above: Performed By: #### L 501.9520, L506.1000, L502.0250, L500.4050, L100.0100, L500.4100 #### [facility] [address] [place], [address] Basophils/100 WBC (Bld) 0.7 % Normal 0-1 [facility] Comment on above: Performed By: #### L 501.9520, L506.1000, L502.0250, L500.4050, L100.0100, L500.4100 #### [facility] [address] [place], [address] Eosinophils/100 WBC (Bld) 3.2 % Normal 0-5 [facility] Comment on above: Performed By: #### L 501.9520, L506.1000, L502.0250, L500.4050, L100.0100, L500.4100 #### [facility] [address] [place], [address] Erythrocyte distribution width (RBC) [Ratio] 12.4 % Normal 11.6-14.6 [facility] Comment on above: Performed By: #### L 501.9520, L506.1000, L502.0250, L500.4050, L100.0100, L500.4100 #### [facility] [address] [place], [address] Hematocrit (Bld) [Volume fraction] 46.7 % Normal 40-54 [facility] Comment on above: Performed By: #### L 501.9520, L506.1000, L502.0250, L500.4050, L100.0100, L500.4100 #### [facility] [address] [place], [address] Hemoglobin (Bld) [Mass/Vol] 15.0 g/dL Normal 13.0-16.5 [facility] Comment on above: Performed By: #### L 501.9520, L506.1000, L502.0250, L500.4050, L100.0100, L500.4100 #### [facility] [address] [place], [address] IG% 0.100 Normal 0.0-0.9 [facility] Comment on above: Result Comment: IG% - Immature Granulocytes (promyelocytes, myelocytes and metamyelocytes) > 1% indicates that a LEFT SHIFT is Present. Performed By: #### L 501.9520, L506.1000, L502.0250, L500.4050, L100.0100, L500.4100 #### [facility] [address] [place], [address] Lymphocytes/100 WBC (Bld) 32.1 % Normal 19-41 [facility] Comment on above: Performed By: #### L 501.9520, L506.1000, L502.0250, L500.4050, L100.0100, L500.4100 #### [facility] [address] [place], [address] MCH (RBC) [Entitic mass] 27.3 pg Normal 27.0-32.0 [facility] Comment on above: Performed By: #### L 501.9520, L506.1000, L502.0250, L500.4050, L100.0100, L500.4100 #### [facility] [address] [place], [address] MCHC (RBC) [Mass/Vol] 32.1 g/dL Normal 32-36 [facility] Comment on above: Performed By: #### L 501.9520, L506.1000, L502.0250, L500.4050, L100.0100, L500.4100 #### [facility] [address] [place], [address] MCV (RBC) [Entitic vol] 85.1 fL Normal 80-94 [facility] Comment on above: Performed By: #### L 501.9520, L506.1000, L502.0250, L500.4050, L100.0100, L500.4100 #### [facility] [address] [place], [address] Monocytes/100 WBC (Bld) 9.9 % Normal 0-10 [facility] Comment on above: Performed By: #### L 501.9520, L506.1000, L502.0250, L500.4050, L100.0100, L500.4100 #### [facility] [address] [place], [address] Neutrophils/100 WBC (Bld) 54.0 % Normal 47-70 [facility] Comment on above: Performed By: #### L 501.9520, L506.1000, L502.0250, L500.4050, L100.0100, L500.4100 #### [facility] [address] [place], [address] Nucleated RBC (Bld) [#/Vol] 0 10*3/uL Normal 0-5 [facility] Comment on above: Performed By: #### L 501.9520, L506.1000, L502.0250, L500.4050, L100.0100, L500.4100 #### [facility] [address] [place], [address] Platelet mean volume (Bld) [Entitic vol] 12.2 fL High 6.2-12.0 [facility] Comment on above: Performed By: #### L 501.9520, L506.1000, L502.0250, L500.4050, L100.0100, L500.4100 #### [facility] [address] [place], [address] Platelets (Bld) [#/Vol] 268 10*3/uL Normal 150-450 [facility] Comment on above: Performed By: #### L 501.9520, L506.1000, L502.0250, L500.4050, L100.0100, L500.4100 #### [facility] [address] [place], [address] RBC (Bld) [#/Vol] 5.49 10*6/uL Normal 4.6-6.2 [facility] Comment on above: Performed By: #### L 501.9520, L506.1000, L502.0250, L500.4050, L100.0100, L500.4100 #### [facility] [address] [place], [address] RDW SD 38.5 fl Normal 35.1-43.9 [facility] Comment on above: Performed By: #### L 501.9520, L506.1000, L502.0250, L500.4050, L100.0100, L500.4100 #### [facility] [address] [place], [address] WBC (Bld) [#/Vol] 6.9 10*3/uL Normal 4.4-11.0 [facility] Comment on above: Performed By: #### L 501.9520, L506.1000, L502.0250, L500.4050, L100.0100, L500.4100 #### [facility] [address] [place], [address] Comprehensive Metabolic Prof ilon 11-07-2023 Albumin [Mass/Vol] 3.5 g/dL Normal 3.2-5.0 [facility] Comment on above: Performed By: #### L 501.9520, L506.1000, L502.0250, L500.4050, L100.0100, L500.4100 #### [facility] [address] [place], [address] Albumin/Globulin [Mass ratio] 1.0 {ratio} Normal 0.9-2.4 [facility] Comment on above: Performed By: #### L 501.9520, L506.1000, L502.0250, L500.4050, L100.0100, L500.4100 #### [facility] [address] [place], [address] ALK P 84 U/L Normal 45-117 [facility] Comment on above: Performed By: #### L 501.9520, L506.1000, L502.0250, L500.4050, L100.0100, L500.4100 #### [facility] [address] [place], [address] ALT [Catalytic activity/Vol] 32 U/L Normal 16-61 [facility] Comment on above: Performed By: #### L 501.9520, L506.1000, L502.0250, L500.4050, L100.0100, L500.4100 #### [facility] [address] [place], [address] AST [Catalytic activity/Vol] 17 U/L Normal 15-37 [facility] Comment on above: Performed By: #### L 501.9520, L506.1000, L502.0250, L500.4050, L100.0100, L500.4100 #### [facility] [address] [place], [address] Bilirubin [Mass/Vol] 0.70 mg/dL Normal 0.20-1.00 [facility] Comment on above: Result Comment: For patients on eltrombopag therapy, use of Dimension [place] TBIL is not recommended. Performed By: #### L 501.9520, L506.1000, L502.0250, L500.4050, L100.0100, L500.4100 #### [facility] [address] [place], [address] BUN/CRE 14.5 RATIO Normal 10-20 [facility] Comment on above: Performed By: #### L 501.9520, L506.1000, L502.0250, L500.4050, L100.0100, L500.4100 #### [facility] [address] [place], [address] CA,Total 8.7 mg/dL Normal 8.5-10.1 [facility] Comment on above: Performed By: #### L 501.9520, L506.1000, L502.0250, L500.4050, L100.0100, L500.4100 #### [facility] [address] [place], [address] Chloride [Moles/Vol] 105 mmol/L Normal 98-107 [facility] Comment on above: Performed By: #### L 501.9520, L506.1000, L502.0250, L500.4050, L100.0100, L500.4100 #### [facility] [address] [place], [address] CO2 [Moles/Vol] 27.0 mmol/L Normal 21.0-32.0 [facility] Comment on above: Performed By: #### L 501.9520, L506.1000, L502.0250, L500.4050, L100.0100, L500.4100 #### [facility] [address] [place], [address] Creatinine [Mass/Vol] 1.10 mg/dL Normal 0.70-1.30 [facility] Comment on above: Result Comment: The validity of the calculated GFR GFRAA in patients over 70 years has not been determined. Clinical correlation is essential. Performed By: #### L 501.9520, L506.1000, L502.0250, L500.4050, L100.0100, L500.4100 #### [facility] [address] [place], [address] EST GFR - AA 87 mL/min Normal >60 [facility] Comment on above: Result Comment: Afri can Malian GFR Calc Performed By: #### L 501.9520, L506.1000, L502.0250, L500.4050, L100.0100, L500.4100 #### [facility] [address] [place], [address] GAP 7 Normal 5-15 [facility] Comment on above: Performed By: #### L 501.9520, L506.1000, L502.0250, L500.4050, L100.0100, L500.4100 #### [facility] [address] [place], [address] GFR/1.73 sq M.predicted among non-blacks MDRD (S/P/Bld) [Vol rate/Area] 72 mL/min/{1.73_m2} Normal >60 [facility] Comment on above: Result Comment: Non- GFR Calc Performed By: #### L 501.9520, L506.1000, L502.0250, L500.4050, L100.0100, L500.4100 #### [facility] [address] [place], [address] Globulin (S) [Mass/Vol] 3.6 g/dL Normal 2.2-4.2 [facility] Comment on above: Performed By: #### L 501.9520, L506.1000, L502.0250, L500.4050, L100.0100, L500.4100 #### [facility] [address] [place], [address] Glucose [Mass/Vol] 86 mg/dL Normal 74-106 [facility] Comment on above: Performed By: #### L 501.9520, L506.1000, L502.0250, L500.4050, L100.0100, L500.4100 #### [facility] [address] [place], [address] Potassium [Moles/Vol] 3.6 mmol/L Normal 3.5-5.1 [facility] Comment on above: Performed By: #### L 501.9520, L506.1000, L502.0250, L500.4050, L100.0100, L500.4100 #### [facility] [address] [place], [address] Sodium [Moles/Vol] 139 mmol/L Normal 136-145 [facility] Comment on above: Performed By: #### L 501.9520, L506.1000, L502.0250, L500.4050, L100.0100, L500.4100 #### [facility] [address] [place], [address] T PROT 7.1 g/dL Normal 6.4-8.2 [facility] Comment on above: Performed By: #### L 501.9520, L506.1000, L502.0250, L500.4050, L100.0100, L500.4100 #### [facility] [address] [place], [address] Urea nitrogen [Mass/Vol] 16 mg/dL Normal 7-18 [facility] Comment on above: Performed By: #### L 501.9520, L506.1000, L502.0250, L500.4050, L100.0100, L500.4100 #### [facility] [address] [place], [address] Lipid Profileon 11-07-2023 Cholesterol [Mass/Vol] 139 mg/dL Normal 200 [facility] Comment on above: Result Comment: <200 mg/dL Desirable 200-240 mg/dL Borderline >240 mg/dL High Risk Performed By: #### L 501.9520, L506.1000, L502.0250, L500.4050, L100.0100, L500.4100 #### [facility] [address] [place], [address] Cholesterol in HDL [Mass/Vol] 39 mg/dL Low [facility] Comment on above: Result Comment: The drugs N-Acetylcysteine and Metamizole may falsely depress this assay. Reference Range HDL <40 mg/dL Low HDL Cholesterol HDL >or= 60 mg/dL High HDL Cholesterol Performed By: #### L 501.9520, L506.1000, L502.0250, L500.4050, L100.0100, L500.4100 #### [facility] [address] [place], [address] Cholesterol in LDL [Mass/Vol] 79 mg/dL Normal 0-130 [facility] Comment on above: Performed By: #### L 501.9520, L506.1000, L502.0250, L500.4050, L100.0100, L500.4100 #### [facility] [address] [place], [address] Cholesterol in VLDL [Mass/Vol] 21 mg/dL Normal 5-40 [facility] Comment on above: Performed By: #### L 501.9520, L506.1000, L502.0250, L500.4050, L100.0100, L500.4100 #### [facility] [address] [place], [address] Triglyceride [Mass/Vol] 103 mg/dL Normal [facility] Comment on above: Result Comment: The drugs N-Acetylcysteine and Metamizole may falsely depress this assay. Serum Triglycerides Reference Interval Normal <150 mg/dL Borderline high 150 - 199 mg/dL High 200 - 499 mg/dL Very High > or = 500 mg/dL Performed By: #### L 501.9520, L506.1000, L502.0250, L500.4050, L100.0100, L500.4100 #### [facility] [address] [place], [address] Microalb:Creat Ratio,Random URon 11-07-2023 Creatinine [Mass/Vol] 219.00 mg/dL Normal NO RANGE EST . [facility] Comment on above: Performed By: #### L 501.9520, L506.1000, L502.0250, L500.4050, L100.0100, L500.4100 #### [facility] [address] [place], [address] MALB:CRE 7.0 mg/g CRE Normal <30 mg/g CRE [facility] Comment on above: Performed By: #### L 501.9520, L506.1000, L502.0250, L500.4050, L100.0100, L500.4100 #### [facility] [address] [place], [address] MICROALBUMIN,UR 15.3 mg/L Normal NO RANGE EST. [facility] Comment on above: Performed By: #### L 501.9520, L506.1000, L502.0250, L500.4050, L100.0100, L500.4100 #### [facility] [address] [place], [place], [address] Thyroid Stim Hormone (TSH)on 11-07-2023 TSH 1.47 uIU/mL Normal 0.358-3.74 [facility] Comment on above: Performed By: #### L 501.9520, L506.1000, L502.0250, L500.4050, L100.0100, L500.4100 #### [facility] [address] [place], [place], [address] Endocrinology Visit Reporton 11-01-2023 Endocrinology Visit Report [facility] [address] [place], [place] [address] OFFICE VISIT Date of Service: 11/01/23 MR#: [id number] Acct: [id number] Name: BREE GALVEZ Rep #: [id number] : 1960 Provider: FILOMENA lafleur Age/Sex: 63/M Location: [facility] [place] Status: Signed Intake Vital Signs 06/27/23 08:40 11/01/23 08:47 Height 5 ft 9 in 5 ft 9 in Weight: 233 lb 6 oz 230 lb BMI 34.4 34.0 BP 128/80 H 135/81 H Blood Pressure Location Lt brachial Rt brachial Position Sitting Sitting Respiration 18 16 Pulse 84 75 Pulse Source Monitor Monitor Temp 98.7 F 96.5 F L Temp Source Temporal Temporal Pulse Oximetry (%) 98 94 Oxygen Delivery Method room air room air Intake Visit Reasons: 4 M FU Chief Complaint: f/u diabetes Product Safety Consultant Required: No Accompanied by: Self Is patient in pain?: No Allergies No Known Allergies Allergy (Verified 11/01/23 08:46) Medications ???Medication ???Instructions ???Recorded ???Confirmed ???Type insulin pump cartridge,automate d #1 ea 03/08/23 06/25/23 Rx dose,BT with controller subcutaneous (Omnipod 5 G6 Intro Kit (Gen 5) subcutaneous cartridge with controller) Humalog U-100 Insulin 100 unit/mL 100 unit continuous subcutaneous 11/01/23 11/01/23 Rx subcutaneous solution (insulin infusion .continuous #90 mL lispro) blood-glucose sensor (Dexcom G6 #3 ea 11/01/23 11/01/23 Rx Sensor device) blood-glucose transmitter (Dexcom #1 ea 11/01/23 11/01/23 Rx G6 Transmitter device) glimepiride 4 mg tablet 4 mg PO QAM #90 tabs 11/01/23 11/01/23 Rx insulin pump cart,automated,BT #45 ea 11/01/23 11/01/23 Rx (Omnipod 5 G6 Pods (Gen 5) subcutaneous cartridge) lisinopril 10 1 tab PO DAILY #90 tabs 11/01/23 11/01/23 Rx mg-hydrochlorothia zide 12.5 mg tablet metformin 1,000 mg tablet 1,000 mg PO BID #180 tabs 11/01/23 11/01/23 Rx pravastatin 20 mg tablet 20 mg PO QHS #90 tabs 11/01/23 11/01/23 Rx zolpidem 10 mg tablet 10 mg PO PRN 11/01/23 11/01/23 History PFSH Medical History Injection of surface of left eye Pneumonia HTN (hypertension) Diabetes type 2, controlled Back problem Surgical History No pertinent past surgical history Family History Mother Alcoholism Heart disease Myocardial infarction Hypertension Diabetes Father Alcoholism Social History household members: spouse current occupational status: employed current occupation: self employed, 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 A1C today is 6.7%, improved from 06/25/23 at 6.9%. He has lost 3 lbs. Currently using Omnipod 5 with Dexcom G6- he is pleased with system. Glooko report downloaded and reviewed- he is under reporting carbohydrates, he is occasionally missing boluses. He utilizes manual mode frequently if he is eating well or while CGM sensor is warming up. Denies any significant episodes of hypoglycemia. In addition to pump he is also taking metformin 1 gm BID with food and glimepiride 4 mg once daily. BP today is 135/81. Currently taking lisinopril-HCTZ 10-12.5 mg once daily. He is overdue for labs. Denies any acute concerns. Exam Const General: cooperative, healthy appearing, comfortable and no acute distress Nutritional Appearance: obese Orientation: alert, awake and oriented x3 HENMT Head: normal to inspection Ears: hearing grossly normal bilaterally Nose: external nose normal Face and sinus: normal facial exam Eyes General: appearance normal, both eyes and all related structures Alignment and Position: alignment normal Sclera: sclerae normal Neck Neck: normal visual inspection Carotids: normal carotid upstroke Chest Chest palpation inspection: normal inspection of the chest Resp Effort Inspection: normal respiratory effort, able to speak in complete sentences, symmetric chest movement, normal respiratory pattern, no audible wheezes and no cough Auscultation: Bilateral: Clear to Auscultation Cardio Rate: regular rate Rhythm: regular rhythm Heart Sounds: S1 normal and S2 normal Bruits: no carotid bruits GI Inspection: normal to inspection and obe (more content not included)... Normal [facility] Absolute lymphocyte countOrd ered By: Dr. Rubalcava on 07-10-2022 Lymphocytes Auto (Unsp spec) [#/Vol] 2.58 10*3/uL 0.83-4.51 [facility] Basophil percentageOrdered B y: Dr. Rubalcava on 07-10-2022 Basophils/100 WBC (Bld) 0.6 % 0-1 [facility] Bilirubin [Mass/Vol] 0.30 mg/dL 0.20-1.00 [facility] Comment on above: For patients on eltr ombopag therapy, use of Dimension [place] TBIL is not recommended. Chloride [Moles/Vol] 104 mmol/L 98-107 [facility] Cholesterol [Mass/Vol] 182 mg/dL <200 [facility] Comment on above: <200 mg/dL Desirable 200-240 mg/dL Borderline >240 mg/dL High Risk Eosinophils/100 WBC (Bld) 3.6 % 0-5 [facility] Glucose [Mass/Vol] 158 mg/dL 74-106 [facility] Comment on above: Fasting Glucose resu lt greater than or equal to 126 mg/dL suggests DIABETES MELLITUS per A.D.A. criteria. Neutrophils (Bld) [#/Vol] 4.4 10*3/uL 2.0-7.7 [facility] Neutrophils/100 WBC (Bld) 54.4 % 47-70 [facility] Potassium [Moles/Vol] 4.0 mmol/L 3.5-5.1 [facility] Protein [Mass/Vol] 7.6 g/dL 6.4-8.2 [facility] Sodium [Moles/Vol] 139 mmol/L 136-145 [facility] Triglyceride [Mass/Vol] 90 mg/dL <199 [facility] Comment on above: The drugs N-Acetylcy steine and Metamizole may falsely depress this assay.Serum Triglycerides Reference Interval Normal <150 mg/dL Borderline high 150 - 199 mg/dL High 200 - 499 mg/dL Very High > or = 500 mg/dL WBC (Bld) [#/Vol] 8.0 10*3/uL 4.4-11.0 [facility] Blood erythrocytes count (nu mber/volume)Ordered By: Dr. Rubalcava on 07-10-2022 RBC (Bld) [#/Vol] 5.32 10*6/uL 4.6-6.2 [facility] Blood hemoglobin measurement (mass/volume)Ordered By: Dr. Rubalcava on 07-10-2022 Hemoglobin (Bld) [Mass/Vol] 14.6 g/dL 13.0-16.5 [facility] Blood lymphocytes/100 leukoc ytesOrdered By: Dr. Rubalcava on 07-10-2022 Lymphocytes/100 WBC (Bld) 32.3 % 19-41 [facility] Blood monocytes/100 leukocyt esOrdered By: Dr. Rubalcava on 07-10-2022 Monocytes/100 WBC (Bld) 8.8 % 0-10 [facility] Blood platelet mean volumeOr dered By: Dr. Rubalcava on 07-10-2022 Platelet mean volume (Bld) [Entitic vol] 11.9 fL 6.2-12.0 [facility] Determination of erythrocyte mean corpuscular volume (MCV)Ordered By: Dr. Rubalcava on 07-10-2022 MCV (RBC) [Entitic vol] 87.6 fL 80-94 [facility] Hematocrit Auto (Bld) [Volum e fraction]Ordered By: Dr. Rubalcava on 07-10-2022 Hematocrit (Bld) [Volume fraction] 46.6 % 40-54 [facility] Laboratory - Chemistry and C hemistry - challengeOrdered By: Dr. Rubalcava on 07-10-2022 ALP [Catalytic activity/Vol] 105 U/L 45-117 [facility] ALT [Catalytic activity/Vol] 26 U/L 16-61 [facility] CO2 [Moles/Vol] 27.0 mmol/L 21.0-32.0 [facility] Globulin (S) [Mass/Vol] 3.9 g/dL 2.2-4.2 [facility] Urea nitrogen/Creatinine [Mass ratio] 19.8 mg/mg 10-20 [facility] Laboratory - Hematology and Cell countsOrdered By: Dr. Rubalcava on 07-10-2022 Erythrocyte distribution width (RBC) [Entitic vol] 39.7 fL 35.1-43.9 [facility] Erythrocyte distribution width (RBC) [Ratio] 12.5 % 11.6-14.6 [facility] Immature granulocytes/100 WBC (Bld) 0.300 % 0.0-0.9 [facility] Comment on above: IG% - Immature Granu locytes (promyelocytes, myelocytes and metamyelocytes) > 1% indicates that a LEFT SHIFT is Present. MCH (RBC) [Entitic mass] 27.4 pg 27.0-32.0 [facility] Nucleated RBC/100 WBC (Bld) [Ratio] 0 % 0-5 [facility] Auto (RBC) [Mass/Vol]Or dered By: Dr. Rubalcava on 07-10-2022 MCHC (RBC) [Mass/Vol] 31.3 g/dL 32-36 [facility] No Panel InformationOrdered By: Dr. Rubalcava on 07-10-2022 Estimated GFR (MDRD) Amer 86 mL/min >60 [facility] Comment on above: GFR Calc Estimated GFR (MDRD) Non-Af Amer 71 mL/min >60 [facility] Comment on above: Non- GFR Calc Urine Microalbumin/Creatinine Ratio 9.3 mg/g CRE <30 [facility] Platelets bldOrdered By: Dr. Rubalcava on 07-10-2022 Platelets (Bld) [#/Vol] 296 10*3/uL 150-450 [facility] Serum or plasma albumin kaci urement (mass/volume)Ordered By: Dr. Rubalcava on 07-10-2022 Albumin [Mass/Vol] 3.7 g/dL 3.2-5.0 [facility] Serum or plasma albumin/glob ulin mass ratioOrdered By: Dr. Rubalcava on 07-10-2022 Albumin/Globulin [Mass ratio] 0.9 {ratio} 0.9-2.4 [facility] Serum or plasma calcium kaci urement (mass/volume)Ordered By: Dr. Rubalcava on 07-10-2022 Calcium [Mass/Vol] 8.7 mg/dL 8.5-10.1 [facility] Serum or plasma cholesterol in HDL measurement (mass/volume)Ordered By: Dr. Rubalcava on 07-10-2022 Cholesterol in HDL [Mass/Vol] 37 mg/dL >40 [facility] Comment on above: The drugs N-Acetylcy steine and Metamizole may falsely depress this assay. Reference Range HDL <40 mg/dL Low HDL Cholesterol HDL >or= 60 mg/dL High HDL Cholesterol Serum or plasma cholesterol in VLDL measurement (mass/volume)Ordered By: Dr. Rubalcava on 07-10-2022 Cholesterol in VLDL [Mass/Vol] 18 mg/dL 5-40 [facility] Serum or plasma creatinine m easurement (mass/volume)Ordered By: Dr. Rubalcava on 07-10-2022 Creatinine [Mass/Vol] 1.11 mg/dL 0.70-1.30 [facility] Comment on above: The validity of the calculated GFR & GFRAA in patients over 70 years has not been determined. Clinical correlation is essential. Serum or plasma low density lipoprotein (LDL) cholesterol measurement (mass/volume)Ordered By: Dr. Rubalcava on 07-10-2022 Cholesterol in LDL [Mass/Vol] 127 mg/dL 0-130 [facility] Serum or plasma urea nitroge n measurement (mass/volume)Ordered By: Dr. Rubalcava on 07-10-2022 Urea nitrogen [Mass/Vol] 22 mg/dL 7-18 [facility] Thin prep Papanicolaou smear with manual screeningOrdered By: Dr. Rubalcava on 07-10-2022 Thin prep Papanicolaou smear with manual screening 11 U/L 15-37 [facility] Thin prep Papanicolaou smear with manual screening 8 5-15 [facility] Thin prep Papanicolaou smear with manual screening 20.8 mg/L NO RANGE EST. [facility] Urine creatinine measurement (mass/volume)Ordered By: Dr. Rubalcava on 07-10-2022 Creatinine (U) [Mass/Vol] 223.00 mg/dL NO RANGE EST. [facility] Whole blood hemoglobin A1c/t otal hemoglobin ratio (mass fraction)Ordered By: Dr. Rubalcava on 07-10-2022 HbA1c (Bld) [Mass fraction] 7.4 % 3.8-5.6 [facility] Comment on above: Normal < 5.7 % Predi abetic 5.7 - 6.4 % Diabetic >or= 6.5 % Please note range changes. Vital Signs Date Time Vital Sign Value Performing Clinician Rivera morales 10-13-2024 09:38-0400 Body height 175.[address] Flora Rubalcava MD Work Phone: [facility] 10-13-2024 09:38-0400 Body mass index (BMI) [Ratio] 34.1 kg/m2 Dr. Flora Rubalcava MD Work Phone: [facility] 10-13-2024 09:38-0400 Body weight 104.[address] Flora Rubalcava MD Work Phone: [facility] 10-13-2024 09:38-0400 Diastolic blood pressure 88 mm[Hg] Dr. Flora Rubalcava MD Work Phone: [facility] 10-13-2024 09:38-0400 Heart rate 72 /min Dr. Flora Rubalcava MD Work Phone: [facility] 10-13-2024 09:38-0400 SaO2% (BldA) [Mass fraction] 93 % Dr. Flora Rubalcava MD Work Phone: [facility] 10-13-2024 09:38-0400 Systolic blood pressure 137 mm[Hg] Dr. Flora Rubalcava MD Work Phone: [facility] 06-22-2022 15:05-0500 Body height 175.[address] Lukas Boggs Work Phone: [facility] 06-22-2022 15:05-0500 Body mass index (BMI) [Ratio] 33.7 kg/m2 Dr. Lukas Boggs Work Phone: [facility] 06-22-2022 15:05-0500 Body temperature 97.5 [degF] Dr. Lukas Boggs Work Phone: [facility] 06-22-2022 15:05-0500 Body weight 103.[address] Lukas Boggs Work Phone: [facility] 06-22-2022 15:05-0500 Diastolic blood pressure 80 mm[Hg] Dr. Lukas Boggs Work Phone: [facility] 06-22-2022 15:05-0500 Heart rate 78 /min Dr. Lukas Boggs Work Phone: [facility] 06-22-2022 15:05-0500 Respiratory rate 12 /min Dr. Lukas Boggs Work Phone: [facility] 06-22-2022 15:05-0500 SaO2% (BldA) [Mass fraction] 99 % Dr. Lukas Boggs Work Phone: [facility] 06-22-2022 15:05-0500 Systolic blood pressure 126 mm[Hg] Dr. Lukas Boggs Work Phone: [facility] Encounters Encounter Date Encounter Type Care Provider Facility Start: 10-13-2024 End: 10-13-2024 Patient encounter procedure Iris Koehler [employer]-[facility] Work Phone: Start: 10-13-2024 End: 10-13-[address] Flora Rubalcava MD Work Phone: [facility] Work Phone: Start: 06-24-2024 ambulatory Flora Rubalcava Facility :[facility] Start: 04-28-2024 End: 04-28-2024 ambulatory Iris Koehler Facility:[facility] Start: 04-14-2024 End: 04-14-2024 ambulatory Flora Rubalcava Facility:[facility] Start: 12-25-2023 End: 12-25-2023 ambulatory Kassidy Aviles Facility:[facility] Start: 11-07-2023 End: 11-07-2023 ambulatory Flora Rubalcava Facility:[facility] Start: 11-01-2023 End: 11-01-2023 ambulatory Flora Rubalcava Facility:[facility] Start: 07-10-2022 End: 07-10-[address] Lukas Boggs Work Phone: [facility] Work Phone: Start: 07-10-2022 End: 07-10-[address] Lukas Boggs Work Phone: [facility] Start: 06-22-2022 End: 06-22-[address] Lukas Boggs Work Phone: [facility] Procedures Date Procedure Procedure Detail Performing Clinician Start: 07-10-2022 Plain X-ray of shoulder Dr. Lukas Boggs Work Phone: Plan of Treatment Date Care Activity Detail Author Comprehensive metabo lic 1999 panel - Serum or Plasma [facility] Lipid 1996 panel - Serum or Plasma [facility] Prostate specific antigen measurement [facility] Thyroid stimulating hormone measurement [facility] Urine microalbumin/c reatinine ratio measurement [facility] Vitamin D, 25-hydroxy measurement [facility] Immunizations Immunization Date Immunization Notes Care Provider Fa cility 01-06-2021 Covid (Pfizer) Dr. Lukas head Work Phone: [facility] 12-09-2020 Covid (Pfizer) Dr. Lukas head Work Phone: [facility] Payers Date Payer Category Payer Self-pay [id number] 2023 Self-pay [id number] Unknown COMMERCIAL OTHER [id number] Unknown [id number] Unknown [facility] [id number] Unknown [id number] 2.16.8 [id number] Unknown [id number] 2.16.8 [id number] Unknown [id number] 2.16.8 [id number] Unknown [id number] 2.16.8 [id number] Unknown [id number] 2.16.8 [id number] Unknown [id number] 2.16.8 [id number] Unknown [id number] 2.16.8 [id number] Social History Date Type Detail Facility Start: 06-22-2022 Tobacco smoking stat [facility] Unknown if ever smoked [facility] Start: 1960 Sex Assigned At Male [facility] Start: 06-27-2023 [facility] Evaluation note Note Date & Type Note Facility Evaluation note Diagnosis Onset Date Essential hypertension acute Chronic left shoulder pain c hronic Type 2 diabetes mellitus wit hout complications chronic Immunization declined noneac tive Establishing care with new d octor, encounter for noneactive [facility] Work Phone: Evaluation note Note Date & Type Note Facility Evaluation note No assessment information availa ble [facility] Work Phone: Reason for referral (narrative) Note Date & Type Note Facility Reason for referral (narrative) No reason for referral information available [facility] Work Phone: Chief Complaint and Reason for Visit Chief Complaint SUPERVISOR INSPECTION DEPARTMENT, EST. 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 Reason for Visit Essential hypertensi on Chronic left shoulder pain Type 2 diabetes mellitus without complications Immunization declined Establishing care with new doctor, encounter for Chief Complaint Admit Date 6 M FU October 13, 2024 9:36a m Family History No Family History Records Found Relationship Condition Age at Onset Recorded Date/T tawana mother Alcoholism Unknown Cardiac disease Unknown Myocardial infarction Unknown Hypertension Unknown Diabetes mellitus Unknown father Alcoholism Unknown Advance Directives No Advanced Directives Records Found Advance Directive Response Recorded Date/ Time Advance Directives No June 10:21am Living Will Yes May 18 1:17pm Power of Warehouse Production Worker Yes May 18, 2021 1:17pm Advance Directive Response Recorded Date/ Time Advance Directives No June 10:21am Summary Purpose Additional Source Comments Care Teams (unrecognized sec tion and content) Team Status: Active Member Role Status Dates Dr. Lukas Boggs MD Family Provider Active Dr. Flora Rubalcava MD Primary Care Provider Active Team Status: Inactive Member Role Status Dates Dr. Lukas Boggs MD Primary Care Provider, Referring Provider Active Dr. Flora Rubalcava MD Attending Provider Active Team Status: Inactive Member Role Status Dates Dr. Flora Rubalcava MD Primary Care Pro vider, Attending Provider, Referring Provider Active Team Status: Inactive Member Role Status Dates Dr. Flora Rubalcava MD Primary Care Provider Active Start: October 13, 2024 End: October 13, 2024 Dr. Flora Rubalcava MD Referring Provider Active Start: October 13, 2024 End: October 13, 2024 FILOMENA Sin Attending Provider Active Start: October 13, 2024 End: October 13, 2024 Goals (unrecognized section and content) Goals may be documented in a n alternate sectionGoals may be documented in an alternate section (unrecognized sect ion and content) No Status Records Found INFORMATION SOURCE (unrecogn ized section and content) DATE CREATED AUTHOR 10/13/2024 [facility] FOR RECORDS PERTAINING TO PATIENTS WHO ARE OR HAVE BEEN ENROLLED IN A CHEMICAL DEPENDENCY/SUBSTANCEABUSE PROGRAM, SOME INFORMATION MAY BE OMITTED. This clinical summary was aggregated from multiple sources. Caution should be exercised in using it in the provision of clinical care. This summary normalizes information from multiple sources, and as a consequence, information in this document may materially change the coding, format and clinical context of patient data. In addition, data may be omitted in some cases. CLINICAL DECISIONS SHOULD BE BASED ON THE PRIMARY CLINICAL RECORDS. [facility]. provides no warranty or guarantee of the accuracy or completeness of information in this document.
[2025-04-13 09:36] LABS: AST(SGOT) 20 U/L (<=37); Alanine Aminotransfer ALT/SGPT 22 U/L (<=46); Albumin, Serum 4.0 g/dL (3.4-4.8); Alkaline Phosphatase 82 U/L (40-129); Anion Gap 10 (5-15); BUN 20 mg/dL (4-19); BUN/Creat Ratio 18.6 RATIO (10-20); Calcium,Total 8.8 mg/dL (7.6-11.0); Carbon Dioxide 24.1 mmol/L (21.0-32.0); Chloride 105 mmol/L (98-108); Cholesterol 149 mg/dL (<=200); Globulin 2.7 g/dL (2.2-4.2); Glucose 124 mg/dL (70-99); Low Density Lipoprotein Calc. 87 mg/dL; PSA,Total - Annual Screen 0.55 ng/mL (0.02-4.00); Potassium 4.3 mmol/L (3.3-5.1); Triglycerides 117 mg/dL; Very Low Density Lipoprotein 23 mg/dL (5-40); Vitamin D,25 Hydroxy 22.8 ng/mL (30-100); cholesterol:hdl ratio screen 3.70
[2025-04-13 10:10] LABS: Creatinine, Urine (random) 185.00 mg/dL (39.00-259.00); Microalbumin,Random Urine 13.2 mg/L (<20 mg/L)
== END | disposition home or self-care (01) ==
LOC: LAB 08:28
PROVIDERS: PCP Internal Medicine; Referring Provider Nurse Practitioner Family; Visit Provider Nurse Practitioner Family
DX: E11.9 Type 2 diabetes mellitus without complications (principal)
CPT/HCPCS: 36415; 80053; 80061; 82043; 82306; 82570; 84153; 84443; G0103